=== PATIENT | female | born 2005 ===

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

== ENCOUNTER 2024-12-08 08:19 | Day surgery (SDC) | payer BC, MEDICAID, OTHER ==
[2024-12-08] MEDS ORDERED: Propofol 200 MG/20 ML SDV IV ONE (08:20)
[2024-12-08] MEDS ORDERED: Sodium Chloride 0.9% 10 ML Syringe FLUSH PRN (08:30)
[2024-12-08] MEDS: Lactated Ringers 1,000 ML IV SCH (09:33)
== END 2024-12-08 10:47 | disposition home or self-care (01) ==
LOC: FB.SDS 08:19
PROVIDERS: ATTEND Surgery
DX: K29.50 Unspecified chronic gastritis without bleeding (principal); K31.89 Other diseases of stomach and duodenum; K22.89 Other specified disease of esophagus; K21.00 Gastro-esophageal reflux disease with esophagitis, without bleeding; K44.9 Diaphragmatic hernia without obstruction or gangrene; Z88.1 Allergy status to other antibiotic agents; Z79.899 Other long term (current) drug therapy
CPT/HCPCS: 00731; 43239; 81025; 88305; 88342; A9270; J2003; J2704; J7120